=== PATIENT | female | born 1980 ===

== ENCOUNTER 2022-11-13 06:52 | Day surgery (SDC) | payer OTHER ==
[~2022-11-13] VITALS: Ht 163.8 cm; Wt 67.1 kg
[2022-11-13] MEDS ORDERED: NAPR500T14 PO (12:52)
== END 2022-11-13 15:25 | disposition home or self-care (01) ==
LOC: CIR.AMB 06:52
PROVIDERS: ATTEND Obstetrics & Gynecology
DX: D25.0 Submucous leiomyoma of uterus (principal); N84.0 Polyp of corpus uteri; N80.03 Adenomyosis of the uterus; N88.8 Other specified noninflammatory disorders of cervix uteri; N92.6 Irregular menstruation, unspecified; Z20.822 Contact with and (suspected) exposure to COVID-19